=== PATIENT | male | born 1940 | race Caucasian/White ===

== ENCOUNTER 2020-06-16 10:24 | Outpatient (REF) | payer MEDICARE, SELFPAY | END 2020-06-16 10:25 | disposition home or self-care (01) | LOC: HO.WFDLDS 10:24 | PROVIDERS: Visit Provider Internal Medicine | DX: Z20.828 Contact with and (suspected) exposure to other viral communicable diseases (principal) | CPT/HCPCS: U0003 ==

== ENCOUNTER 2022-12-21 11:38 | Outpatient (REF) | payer MEDICARE, SELFPAY | END 2022-12-21 11:39 | disposition home or self-care (01) | LOC: HO.HAP 11:38 | PROVIDERS: Visit Provider Internal Medicine | DX: Z13.89 Encounter for screening for other disorder (principal) ==

== ENCOUNTER 2022-12-22 10:12 | Outpatient (REF) | payer SELFPAY | END 2022-12-22 10:13 | disposition home or self-care (01) | LOC: HO.HAP 10:12 | PROVIDERS: Visit Provider Internal Medicine | DX: Z46.1 Encounter for fitting and adjustment of hearing aid (principal); H90.3 Sensorineural hearing loss, bilateral | CPT/HCPCS: 92592 ==

== ENCOUNTER 2023-01-19 13:50 | Outpatient (REF) | payer SELFPAY | END 2023-01-19 13:51 | disposition home or self-care (01) | LOC: HO.HAP 13:50 | PROVIDERS: Visit Provider Internal Medicine | DX: Z13.89 Encounter for screening for other disorder (principal) ==

== ENCOUNTER 2023-01-24 15:06 | Outpatient (REF) | payer SELFPAY | END 2023-01-24 15:07 | disposition home or self-care (01) | LOC: HO.HAP 15:06 | PROVIDERS: Visit Provider Internal Medicine | DX: Z46.1 Encounter for fitting and adjustment of hearing aid (principal); H90.3 Sensorineural hearing loss, bilateral | CPT/HCPCS: 92593; V5267 ==